=== PATIENT | female | born 1945 | race Caucasian/White ===

== ENCOUNTER → 2016-08-31 | Outpatient (REF) ==
[2016-01-04 23:28] VITALS: BP 128/76
[~2016-08-31] MED LIST: AMLODIPINE BESYL5 MG PO; AMOXICILLIN250 M2; BENAZEPRIL40 MG PO; CEFDINIR300 MG PO; EPIPEN 2-PAK1 MG/ML MR; HCTZ 25MG25 MG PO; HYZAAR 100-251 EACH PO; INDERAL 10MG10 MG PO; NORVASC 10MG10 MG PO; PROVENTIL0.09 MG/A1 IH; RANITIDINE HCL75 MG PO; TENORMIN25 MG PO; TOPROL XL 50MG50 MG PO; ZANTAC300 MG PO; ZESTRIL20 MG PO; ZYLOPRIM300 MG PO
== END ==
LOC: LAB 09:03
DX: Z20.5 Contact with and (suspected) exposure to viral hepatitis (principal)

== ENCOUNTER → 2016-09-30 | Outpatient (REF) ==
[2016-01-04 23:28] VITALS: BP 128/76
== END ==
LOC: LAB 10:41
DX: Z01.812 Encounter for preprocedural laboratory examination (principal); M53.86 Other specified dorsopathies, lumbar region; R10.32 Left lower quadrant pain

== ENCOUNTER → 2016-10-02 | Outpatient (CLI) | payer OTHER ==
[~2016-10-02] VITALS: Ht 180.3 cm; Wt 102.3 kg
[2016-10-02 12:25] VITALS: BP 143/77
== END ==
LOC: AMSURD 11:56
DX: Z01.811 Encounter for preprocedural respiratory examination (principal); M54.16 Radiculopathy, lumbar region

== ENCOUNTER → 2016-11-11 | Outpatient (REF) ==
[2016-10-02 12:25] VITALS: BP 143/77
== END ==
LOC: LAB 10:42
DX: R10.32 Left lower quadrant pain (principal); R30.0 Dysuria

== ENCOUNTER → 2016-12-18 | Outpatient (REF) ==
[2016-10-02 12:25] VITALS: BP 143/77
== END ==
LOC: LAB 11:56
DX: I10 Essential (primary) hypertension (principal); E78.2 Mixed hyperlipidemia; R73.09 Other abnormal glucose; R20.2 Paresthesia of skin; M81.0 Age-related osteoporosis without current pathological fracture; M10.9 Gout, unspecified

== ENCOUNTER → 2016-12-18 | Outpatient (CLI) | payer OTHER ==
[2016-10-02 12:25] VITALS: BP 143/77
== END ==
LOC: RAD 11:54
DX: M17.11 Unilateral primary osteoarthritis, right knee (principal)

== ENCOUNTER 2017-01-15 15:00 | Outpatient (RCR) | payer OTHER ==
[2016-10-02 12:25] VITALS: BP 143/77
== END 2017-01-15 15:30 | disposition home or self-care (01) ==
LOC: PT 15:00
DX: Z47.89 Encounter for other orthopedic aftercare (principal); M48.061 Spinal stenosis, lumbar region without neurogenic claudication; R53.1 Weakness; M54.16 Radiculopathy, lumbar region

== ENCOUNTER → 2020-02-28 | Outpatient (REF) ==
[2016-10-02 12:25] VITALS: BP 143/77
== END ==
LOC: LAB 11:32
DX: D64.9 Anemia, unspecified (principal)

== ENCOUNTER → 2020-05-31 | Outpatient (REF) ==
[2016-10-02 12:25] VITALS: BP 143/77
== END ==
LOC: LAB 14:35
DX: I10 Essential (primary) hypertension (principal); E78.1 Pure hyperglyceridemia; K90.9 Intestinal malabsorption, unspecified

== ENCOUNTER → 2020-09-06 | Outpatient (REF) ==
[2016-10-02 12:25] VITALS: BP 143/77
== END ==
LOC: LAB 11:03
DX: I10 Essential (primary) hypertension (principal); D50.9 Iron deficiency anemia, unspecified; R73.03 Prediabetes

== ENCOUNTER → 2020-10-03 | Outpatient (CLI) | payer OTHER | LOC: RAD 07:18 → AMSURD 07:18 → MAMMO 07:30 | DX: Z01.818 Encounter for other preprocedural examination (principal); M81.0 Age-related osteoporosis without current pathological fracture ==

== ENCOUNTER → 2020-10-03 | Outpatient (REF) | LOC: LAB 08:39 | DX: Z01.812 Encounter for preprocedural laboratory examination (principal); D50.9 Iron deficiency anemia, unspecified; K90.9 Intestinal malabsorption, unspecified ==

== ENCOUNTER → 2020-10-14 | Outpatient (REF) ==
[2020-10-14 11:50] LABS: PROTHROMBIN TIME 10.6 SECONDS (9.0-12.0)
== END ==
LOC: LAB 10:37
PROVIDERS: Internal Medicine
DX: Z01.818 Encounter for other preprocedural examination (principal)

== ENCOUNTER → 2020-10-23 | Outpatient (CLI) | payer OTHER | LOC: RAD 10:33 | DX: M17.11 Unilateral primary osteoarthritis, right knee (principal) ==

== ENCOUNTER → 2021-03-20 | Outpatient (CLI) | payer OTHER | LOC: RAD 15:03 | DX: R10.9 Unspecified abdominal pain (principal) ==

== ENCOUNTER → 2021-12-13 | Outpatient (CLI) | payer OTHER | LOC: LAB 09:31 | DX: N39.0 Urinary tract infection, site not specified (principal) ==